=== PATIENT | male | born 1970 | race Caucasian/White ===

== ENCOUNTER → 2017-08-06 | Outpatient (CLI) | payer BC ==
--- NOTE | 2017-08-06 13:26 | DIAGNOSTIC IMAGING REPORT ---
R HAND MIN 3 VIEWS CLINICAL HISTORY: RIGHT HAND PAIN TRAUMA COMPARISON: None. DISCUSSION: There is an intra-articular fracture involving the base of the fifth metacarpal. There is a 10 x 2 mm fracture fragment which is distracted by approximately 2 mm. IMPRESSION: Intra-articular sliver-like fracture arising from the base of the fifth metacarpal Electronically signed by: Rodger Villanueva M.D. 08/06/2017 1:25 PM Dictated Date/Time: 08/06/2017 1:23 PM
== END | disposition home or self-care (01) ==
LOC: C.RDSM 10:57
PROVIDERS: ATTEND Family Medicine
DX: M79.641 Pain in right hand (principal)